=== PATIENT | female | born 1945 | race Hispanic/Latino ===

== ENCOUNTER → 2019-06-18 | Outpatient (CLI) | payer MEDICARE | END | disposition home or self-care (01) | LOC: RAH 09:12 | PROVIDERS: ATTEND Family Medicine | DX: I63.81 Other cerebral infarction due to occlusion or stenosis of small artery (principal); R90.82 White matter disease, unspecified; Z86.73 Personal history of transient ischemic attack (TIA), and cerebral infarction without residual deficits | CPT/HCPCS: 70551 ==

== ENCOUNTER → 2019-07-31 | Outpatient (CLI) | payer MEDICARE | END | disposition home or self-care (01) | LOC: OIH 13:17 | PROVIDERS: ATTEND Family Medicine | DX: K59.00 Constipation, unspecified (principal); M47.819 Spondylosis without myelopathy or radiculopathy, site unspecified | CPT/HCPCS: 74018 ==

== ENCOUNTER → 2019-08-07 | Outpatient (CLI) | payer MEDICARE | END | disposition home or self-care (01) | LOC: OIH 15:50 | PROVIDERS: ATTEND Internal Medicine | DX: M06.4 Inflammatory polyarthropathy (principal); M77.32 Calcaneal spur, left foot; M77.31 Calcaneal spur, right foot | CPT/HCPCS: 73130; 73630 ==

== ENCOUNTER → 2020-05-13 | Outpatient (CLI) | payer MEDICARE | END | disposition home or self-care (01) | LOC: SHCH 11:03 | PROVIDERS: ATTEND Internal Medicine Cardiovascular Disease | DX: R06.09 Other forms of dyspnea (principal); R55 Syncope and collapse; R07.9 Chest pain, unspecified | CPT/HCPCS: 93306; 93356 ==

== ENCOUNTER → 2020-07-01 | Outpatient (CLI) | payer MEDICARE ==
[~2020-07-01] MED LIST: REGADENOSON 0.4 MG/5 ML PF SYG IVP SCH
== END | disposition home or self-care (01) ==
LOC: RAH 10:00
PROVIDERS: ATTEND Internal Medicine Cardiovascular Disease
DX: I25.10 Atherosclerotic heart disease of native coronary artery without angina pectoris (principal); R07.9 Chest pain, unspecified; R06.00 Dyspnea, unspecified
CPT/HCPCS: 78452; 93017; 96374; A9500 ×2; J2785